=== PATIENT | male | born 1955 | race Caucasian/White ===

== ENCOUNTER 2023-04-15 05:53 | Day surgery (SDC) | payer MEDICARE ==
[2023-04-13 14:54] VITALS: BMI 23.6
[2023-04-15] MEDS ORDERED: Midazolam HCl 2 mg/2 ml Vial ONE (07:08)
[2023-04-15] MEDS ORDERED: PROPOFOL 40 ML ONE (07:08)
[2023-04-15] MEDS ORDERED: fentaNYL 50 mcg/mL 1 mL Vial ONE (07:09)
[2023-04-15] MEDS ORDERED: PHENYLEPHRINE-NS 100 MCG/ML 10 ML SYRINGE ONE (07:43)
== END 2023-04-15 08:45 | disposition home or self-care (01) ==
LOC: CSHSDC 05:53
PROVIDERS: ATTEND Internal Medicine Gastroenterology
PROC: 0DBN8ZZ Excision of Sigmoid Colon, Via Natural or Artificial Opening Endoscopic (ICD-10-PCS; principal; 2023-04-15)
DX: Z12.11 Encounter for screening for malignant neoplasm of colon (principal); K63.5 Polyp of colon; Q85.89 Other phakomatoses, not elsewhere classified; K64.8 Other hemorrhoids; K57.30 Diverticulosis of large intestine without perforation or abscess without bleeding; F17.210 Nicotine dependence, cigarettes, uncomplicated; Z90.49 Acquired absence of other specified parts of digestive tract
CPT/HCPCS: 45385; J3010; 88305; J2250; J2704